=== PATIENT | male | born 1995 | race African-American/Black ===

== ENCOUNTER 2018-04-20 07:02 | Emergency (ER) | payer OTHER ==
[~2018-04-20 07:02] MED LIST: RISP.25 PO
[2018-04-20] MEDS ORDERED: IOHEXOL 350 MG/ML 10 ML VIAL (for RAD DIAG) IVCONTRAST ONE (07:03)
[2018-04-20 07:12] VITALS: BP 133/77; PULSE 129; RESP 18; TEMP 99; O2SAT 97
[2018-04-20 07:15] VITALS: O2SAT 97
[2018-04-20] MEDS ORDERED: SODIUM CHLOR 0.9% 1000 ML INJ 1,000 ML IV ONE (07:30)
[2018-04-20] MEDS ORDERED: SODIUM CHLORIDE 0.9% FLUSH 10 ML FLUSH IVF PRN (07:30)
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
[2018-04-20 08:05] LABS: BASOPHIL % 0.2 % (0.0-2.0); HEMOGLOBIN 16.1 GM/DL (13.0-17.0); LYMPH % 11.2 % (9.0-44.0); LYMPHOCYTE # 1.3 TH/MM3 (1.0-4.8); MEAN CORPUSCULAR HEMOGLOBIN 29.5 PG (27.0-34.0); MEAN CORPUSCULAR HGB CONC 33.6 % (32.0-36.0); MEAN PLATELET VOLUME 7.4 FL (7.0-11.0); MONO % 4.5 % (0.0-8.0); MONOCYTE # 0.5 TH/MM3 (0-0.9); NEUT % 84.1 % (16.0-70.0); PLATELET COUNT 433 TH/MM3 (150-450); RED BLOOD COUNT 5.45 MIL/MM3 (4.50-5.90); RED CELL DISTRIBUTION WIDTH 13.4 % (11.6-17.2); WHITE BLOOD COUNT 11.8 TH/MM3 (4.0-11.0)
[2018-04-20 08:14] LABS: PROTHROMBIN TIME - PATIENT 10.4 SEC (9.8-11.6)
[2018-04-20 08:17] VITALS: BP 144/63; PULSE 107; RESP 18; O2SAT 98
[2018-04-20 08:18] LABS: BICARBONATE 23.5 MEQ/L (21.0-32.0); CALCIUM 9.1 MG/DL (8.5-10.1); CREATININE 0.91 MG/DL (0.60-1.30)
[2018-04-20] MEDS ORDERED: ESCI10TA PO (08:40)
[2018-04-20] MEDS ORDERED: TRAZ50TA12 PO (08:40)
[2018-04-20 08:44] VITALS: BP 125/59; PULSE 96; RESP 18; O2SAT 98
[2018-04-20 09:10] VITALS: RESP 16; O2SAT 87
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
[2018-04-20 11:24] VITALS: BP 105/67; PULSE 97; RESP 18; O2SAT 98
== END 2018-04-20 11:52 | disposition home or self-care (01) ==
LOC: NEPC 07:02
DX: S09.90XA Unspecified injury of head, initial encounter (principal); R00.0 Tachycardia, unspecified; F10.129 Alcohol abuse with intoxication, unspecified; F14.10 Cocaine abuse, uncomplicated; Y90.8 Blood alcohol level of 240 mg/100 ml or more; R91.1 Solitary pulmonary nodule; F32.9 Major depressive disorder, single episode, unspecified; V49.9XXA Car occupant (driver) (passenger) injured in unspecified traffic accident, initial encounter; Z79.899 Other long term (current) drug therapy
CPT/HCPCS: 70450; 71045; 71260; 72125; 72170; 74177; 80048; 80307; 85025; 85610; 85730; 99285; J7030; Q9967